=== PATIENT | male | born 1950 | race Caucasian/White ===

== ENCOUNTER → 2018-03-25 12:23 | Outpatient (CLI) | payer OTHER, SELFPAY ==
--- NOTE | 2018-03-25 12:25 | DI.RAD.S_ITS ---
PROCEDURE: XR FOOT RT MIN 3V INDICATIONS: Pain TECHNIQUE: 3 views of the foot were acquired. COMPARISON: None. FINDINGS: Bones: No fractures or dislocations. No suspicious bony lesions. Degenerative joint disease at the first MTPJ. Moderate bunion formation with mild valgus primum. The medial first sesamoid is bipartite. Plantar spur os calcis. Small traction spur at the Achilles insertion. Soft tissues: No tibiotalar joint effusion. Achilles tendon appears normal. IMPRESSION: 1. Negative for fracture or dislocation. 2. Degenerative changes. Dictated by: Adriel Russo M.D. on 03/25/2018 at 13:26 Approved by: Adriel Russo M.D. on 03/25/2018 at 13:28
== END ==
PROVIDERS: Family Provider Family Medicine; PCP Family Medicine; Visit Provider Physician Assistant
DX: M19.071 Primary osteoarthritis, right ankle and foot (principal)
CPT/HCPCS: 73630

== ENCOUNTER → 2018-08-31 09:16 | Outpatient (CLI) | payer OTHER, SELFPAY ==
[2018-08-31 10:26] LABS: Alanine Aminotransferase 26 IU/L (21-72); Albumin 3.9 g/dL (3.5-5.0); Albumin Globulin Ratio 1.3 (1.0-2.8); Alkaline Phosphatase 88 U/L (38-126); Aspartate Aminotransferase 30 IU/L (17-59); BUN Creatinine Ratio 26.7 (6-22); Bilirubin Total 1.7 mg/dL (0.2-1.3); Blood Urea Nitrogen 24 mg/dL (9-20); Calcium 8.4 mg/dL (8.4-10.2); Carbon Dioxide 22 mmol/L (22-32); Chloride 108 mmol/L (98-107); Cholesterol 163 mg/dL (140-199); Estimated Glomerular Filt Rate > 60.0 mL/min (>60); Glucose 132 mg/dL (80-110); HDL Cholesterol 34 mg/dL (40-60); HEMOLYSIS < 15 (0-50); LDL Cholesterol Calculated 96 mg/dL (<100); Potassium 4.2 mmol/L (3.4-5.1); Sodium 143 mmol/L (137-145); Total Protein 6.9 g/dL (6.3-8.2); Triglycerides 163 mg/dL (35-150)
[2018-08-31 10:45] LABS: Prostate Specific Antigen Scrn 0.185 ng/mL (0.1-4.0)
[2018-08-31 10:48] LABS: TSH w/ Reflex to FT4 2.87 uIU/mL (0.47-4.68)
== END ==
PROVIDERS: PCP Internal Medicine; Visit Provider Internal Medicine
DX: E03.9 Hypothyroidism, unspecified (principal); E29.1 Testicular hypofunction; I48.0 Paroxysmal atrial fibrillation; E66.9 Obesity, unspecified
CPT/HCPCS: 36415; 80053; 80061; 84443; G0103

== ENCOUNTER 2020-07-04 13:30 | Emergency (ER) | payer OTHER, SELFPAY ==
[2020-07-04] VITALS (8 sets, daily range): BP systolic 125–157; BP diastolic 64–101; PULSE 82–131; RESP 8–21; TEMP 36.7; O2SAT 96–99; BMI 38.3
--- NOTE | 2020-07-04 13:43 | DI.RAD.S_ITS ---
PROCEDURE: XR CHEST 1V INDICATIONS: chest pain TECHNIQUE: One view of the chest was acquired. COMPARISON: [facility], CR, CHEST 1 VIEW, 01/31/2016, 12:54. [facility], CR, XR CHEST 2 VIEWS, 02/07/2020, 10:33. FINDINGS: Surgical changes and devices: None. Lungs and pleura: Lung volumes are small consistent with thyroid inspiration. Lungs are clear. No pleural effusions or pneumothorax. Mediastinum: Mediastinal contours appear normal. Heart size is normal. Bones and chest wall: No suspicious bony lesions. Overlying soft tissues appear unremarkable. IMPRESSION: Shallow inspiration. No acute cardiopulmonary disease. Dictated by: Stephanie Choi M.D. on 07/04/2020 at 14:26 Approved by: Stephanie Choi M.D. on 07/04/2020 at 14:27
[2020-07-04 14:07] LABS: Add Manual Diff / Slide Review NO; Basophils Absolute Auto 100 /uL (0-100); Basophils Percent Auto 1.6 % (0-2); Eosinophils Absolute Auto 100 /uL (0-450); Eosinophils Percent Auto 2.7 % (2-4); Hematocrit 46.3 % (41-53); Hemoglobin 15.8 g/dL (13.5-17.5); Lymphocytes Absolute Auto 1200 /uL (1100-4500); Lymphocytes Percent Auto 34.5 % (25-40); Mean Corpuscular HGB Conc 34.1 % (30-36); Mean Corpuscular Hemoglobin 32.1 PG (26-34); Mean Corpuscular Volume 93.9 fL (80-100); Monocytes Absolute Auto 400 /uL (0-900); Monocytes Percent Auto 11.6 % (3-14); Neutrophils Absolute Auto 1800 /uL (1500-7000); Neutrophils Percent Auto 49.6 % (50-75); Platelet Count 185 X10^3/uL (150-400); Red Blood Cell Count 4.93 X10^6/uL (4.5-5.9); Red Cell Distribution Width 13.1 % (11.6-14.8); White Blood Cell Count 3.5 X10^3/uL (4.5-11.0)
[2020-07-04] MEDS: SODIUM CHLORIDE 0.9% 1,000 ML 1000 ML IV (14:11)
[2020-07-04 14:21] LABS: Alanine Aminotransferase 14 IU/L (<50); Albumin 3.9 g/dL (3.5-5.0); Albumin Globulin Ratio 1.3 (1.0-2.8); Alkaline Phosphatase 84 U/L (38-126); Aspartate Aminotransferase 27 IU/L (17-59); BUN Creatinine Ratio 23.7 (6-22); Bilirubin Total 1.4 mg/dL (0.2-1.3); Blood Urea Nitrogen 23 mg/dL (9-20); Calcium 8.7 mg/dL (8.4-10.2); Carbon Dioxide 25 mmol/L (22-32); Chloride 107 mmol/L (98-107); Estimated Glomerular Filt Rate > 60.0 mL/min (>60); Globulin 2.9 g/dL (1.7-4.1); Glucose 127 mg/dL (80-110); HEMOLYSIS < 15 (0-50); Magnesium 2.1 mg/dL (1.6-2.3); Potassium 4.3 mmol/L (3.4-5.1); Sodium 138 mmol/L (137-145); Total Protein 6.8 g/dL (6.3-8.2)
--- NOTE | 2020-07-04 14:21 | ED.CHESTPAIN ---
HPI - Chest Pain General Chief Complaint: Chest Pain Stated Complaint: Chest pain, a.fib Time Seen by Provider: 07/04/20 13:40 Source: patient Mode of arrival: Wheelchair History of Present Illness HPI narrative: 69-year-old gentleman with a history of paroxysmal atrial fibrillation (typically lasting no more than 12-48 hours) and not currently anticoagulated, presents with 4 days of atrial fibrillation with exertional chest pressure, pain and pain in through his back. He has no pain at rest. He describes no orthopnea, dyspnea or lower extremity edema. No fever, cough, chills, abdominal pain or change to bowel or bladder habit. Related Data Previous Rx's Medication Instructions Recorded losartan 50 mg tablet See Rx Instructions .ROUTE 10/07/19 .COMPLEX #90 tab metoprolol succinate 50 mg See Rx Instructions .ROUTE 10/07/19 tablet,extended release 24 hr .COMPLEX #270 tab tamsulosin 0.4 mg capsule See Rx Instructions .ROUTE 10/07/19 .COMPLEX #90 cap apixaban See Rx Instructions .ROUTE 07/04/20 .COMPLEX #74 each Allergies Allergy/AdvReac Type Severity Reaction Status Date / Time No Known Allergies Allergy Uncoded 07/04/20 13:39 Review of Systems Review of Systems Narrative: Remainder of review of systems including constitutional, ENT, cardiovascular, respiratory, GI, , musculoskeletal, skin, neurologic and psychiatric systems reviewed and are unremarkable except as noted in HPI. 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) Essential hypertension (Chronic) Deeth disease (Chronic) Hearing loss (Chronic) Hypogonadism in male (Chronic 12/29/12) Obesity (Chronic 12/29/12) Osteoarthritis (Chronic) Paroxysmal atrial fibrillation (Chronic) Vision disorder (Chronic) Surgical History Anesthesia (Resolved) History of knee surgery (Resolved) Social History marital status: number of children: 2 household members: spouse lives independently: Yes caregiver/support person: No housing: house Smoking Status: Former smoker Smoking Status: Former smoker Substance Use Type: does not use Exam Narrative Exam Narrative: General: Healthy appearing, in no acute distress. Able to give a complete and coherent history. Well-nourished well-developed HEENT: Moist mucous membranes, normal sclera with reactive pupils, Neck: No JVD, supple Respiratory: Lungs are clear to auscultation, no wheezing no rales no rhonchi. Full and symmetrical air movement Cardiac: Iregular rate and rhythm, no murmurs no bruits Abdomen: Soft nontender good bowel tones, no flank pain Skin: Warm and dry, no rashes Neurologic: Grossly neurologically intact with no obvious asymmetries or abnormalities Extremities: No trauma, well perfused, no lower extremity edema Psych: Cooperative, appropriate insight and affect Initial Vital Signs Initial Vital Signs: Vital Signs Temperature 98.1 F 07/04/20 13:35 Pulse Rate 131 H 07/04/20 13:35 Respiratory Rate 18 07/04/20 13:35 Blood Pressure 150/101 H 07/04/20 13:35 Pulse Oximetry 98 07/04/20 13:35 Scores ABCD2 Citation: Lancet. 2006Nov 22;369(1934):283-92. Validation and refinement of scores to predict very early stroke risk after transient ischaemic attack. Damien SC1, Deisy PM, William MN, Aly MF, Vini JS, Christelle AL, Zoltan S. Course Orders Ordered: ED Orders 07/04/20 13:43 XR chest 1V Stat Urinalysis and Microscopic Stat 07/04/20 13:51 EKG-12 Lead Routine 07/04/20 14:00 Complete Blood Count AUTO DIFF Stat Comprehensive Metabolic Panel Stat D Dimer Stat Magnesium Stat NT-proBNP (BNP-Adult 18+) Stat Procalcitonin Stat Troponin I Stat Discontinued Medications Apixaban (Eliquis) 5 mg PO NOW ONE Stop: 07/04/20 15:45 Sodium Chloride (Normal Saline 0.9%) 1,000 mls @ 1,000 mls/hr IV BOLUS ONE Stop: 07/04/20 14:41 Last Admin: 07/04/20 14:11 Dose: 1,000 mls/hr Documented by: TSERING Metoprolol Succinate (Toprol Xl) 50 mg PO NOW ONE Stop: 07/04/20 15:45 Vital Signs Vital signs: Vital Signs - 8 hr 07/04/20 13:35 07/04/20 14:12 07/04/20 14:30 Temperature 98.1 F Pulse Rate 131 H 99 H 94 H Respiratory Rate 18 14 13 Blood Pressure 150/101 H 127/81 Pulse Oximetry 98 99 98 MDM - Chest Pain Medical Records Data Attestation: I reviewed the patient's medical records. Lab Data Attestation: I reviewed the patient's lab results. Result diagrams: 07/04/20 14:00 07/04/20 14:00 Labs: Lab Results 07/04/20 07/04/20 07/04/20 Range/Units 14:00 14:00 14:00 WBC 3.5 L (4.5-11.0) X10^3/uL RBC 4.93 (4.5-5.9) X10^6/uL Hgb 15.8 (13.5-17.5) g/dL Hct 46.3 (41-53) % MCV 93.9 (80-100) fL MCH 32.1 (26-34) PG MCHC 34.1 (30-36) % RDW 13.1 (11.6-14.8) % Plt Count 185 (150-400) X10^3/uL Neut % (Auto) 49.6 L (50-75) % Lymph % (Auto) 34.5 (25-40) % Josephine % (Auto) 11.6 (3-14) % Eos % (Auto) 2.7 (2-4) % Baso % (Auto) 1.6 (0-2) % Neut # (Auto) 1800 (5919-2270) /uL Lymph # (Auto) 1200 (2065-0132) /uL Josephine # (Auto) 400 (0-900) /uL Eos # (Auto) 100 (0-450) /uL Baso # (Auto) 100 (0-100) /uL D-Dimer < 200 (<230) ng/mL Sodium 138 (137-145) mmol/L Potassium 4.3 (3.4-5.1) mmol/L Chloride 107 (98-107) mmol/L Carbon Dioxide 25 (22-32) mmol/L BUN 23 H (9-20) mg/dL Creatinine 0.97 (0.66-1.25) mg/dL Estimated GFR > 60.0 (>60) mL/min BUN/Creatinine Ratio 23.7 H (6-22) Glucose 127 H (80-110) mg/dL Calcium 8.7 (8.4-10.2) mg/dL Magnesium 2.1 (1.6-2.3) mg/dL Total Bilirubin 1.4 H (0.2-1.3) mg/dL AST 27 (17-59) IU/L ALT 14 (<50) IU/L Alkaline Phosphatase 84 (38-126) U/L Troponin I < 0.012 (0.01-0.034) ng/mL NT-Pro-B Natriuret Pep 1410 H (<125) pg/mL Total Protein 6.8 (6.3-8.2) g/dL Albumin 3.9 (3.5-5.0) g/dL Globulin 2.9 (1.7-4.1) g/dL Albumin/Globulin Ratio 1.3 (1.0-2.8) Procalcitonin (<0.5) ng/mL 07/04/20 Range/Units 14:00 WBC (4.5-11.0) X10^3/uL RBC (4.5-5.9) X10^6/uL Hgb (13.5-17.5) g/dL Hct (41-53) % MCV (80-100) fL MCH (26-34) PG MCHC (30-36) % RDW (11.6-14.8) % Plt Count (150-400) X10^3/uL Neut % (Auto) (50-75) % Lymph % (Auto) (25-40) % Josephine % (Auto) (3-14) % Eos % (Auto) (2-4) % Baso % (Auto) (0-2) % Neut # (Auto) (7008-7937) /uL Lymph # (Auto) (7317-1937) /uL Josephine # (Auto) (0-900) /uL Eos # (Auto) (0-450) /uL Baso # (Auto) (0-100) /uL D-Dimer (<230) ng/mL Sodium (137-145) mmol/L Potassium (3.4-5.1) mmol/L Chloride (98-107) mmol/L Carbon Dioxide (22-32) mmol/L BUN (9-20) mg/dL Creatinine (0.66-1.25) mg/dL Estimated GFR (>60) mL/min BUN/Creatinine Ratio (6-22) Glucose (80-110) mg/dL Calcium (8.4-10.2) mg/dL Magnesium (1.6-2.3) mg/dL Total Bilirubin (0.2-1.3) mg/dL AST (17-59) IU/L ALT (<50) IU/L Alkaline Phosphatase (38-126) U/L Troponin I (0.01-0.034) ng/mL NT-Pro-B Natriuret Pep (<125) pg/mL Total Protein (6.3-8.2) g/dL Albumin (3.5-5.0) g/dL Globulin (1.7-4.1) g/dL Albumin/Globulin Ratio (1.0-2.8) Procalcitonin < 0.05 (<0.5) ng/mL ECG Data Attestation: I personally reviewed and interpreted this ECG as follows: Interpretation: a fib at 96 normal axis No acute ischemic changes MDM Narrative Medical decision making narrative: 69-year-old gentleman with a history of paroxysmal atrial fibrillation currently with 4 days of atrial fibrillation. Exertional chest pain but doing well at rest. Reassuring labs and no evidence of acute coronary syndrome. Care is reviewed with Dr. Husain, cardiology with [facility]. His recommendation was to begin anticoagulation, increase his metoprolol succinate from 150-200 mg and have him follow-up in their rapid access cardiology clinic. This clinic will call him later this afternoon to schedule an appointment before the end of the week. Discharge Plan Departure Patient Disposition: Home Clinical Impression: Paroxysmal A-fib Instructions: DI for Atrial Fibrillation Activity Restrictions/Additional Instructions: Thank you for coming in today You have been in atrial fibrillation now for 4 days. There is no evidence of significant heart failure or heart attack like event. You do need a bit more help in controlling the heart rate. I am going to have you increase your metoprolol succinate 50 mg to 2 pills in the morning and 2 pills in the evening (this is an extra pill a day) I also going to have you start anticoagulation with apixaban. I have given you a prescription for a starter pack. Taking this will reduce her risk of stroke while you are in atrial fibrillation. I have spoken with Dr. Husain, Dr. Turner partner. Their office will give you a call to schedule an appointment into their rapid access cardiology clinic within the next couple of days. If you have increasing shortness of breath, pain, diaphoresis or other issues arise please feel free to return to the emergency department. Prescriptions: New apixaban 5 mg (74 tabs) tablets,dose pack See Rx Instructions .ROUTE .COMPLEX Qty: 74 RF: 0 No Action losartan 50 mg tablet See Rx Instructions .ROUTE .COMPLEX Qty: 90 RF: 3 metoprolol succinate 50 mg tablet extended release 24 hr See Rx Instructions .ROUTE .COMPLEX Qty: 270 RF: 3 tamsulosin 0.4 mg capsule See Rx Instructions .ROUTE .COMPLEX Qty: 90 RF: 3 Referrals: Jaison Lombardi MD [Non-Staff] - Travis Barnett MD [Primary Care Provider] -
[2020-07-04 14:33] LABS: NT-proBNP (BNP-Adult 18+) 1410 pg/mL (<125); Troponin I < 0.012 ng/mL (0.01-0.034)
[2020-07-04 14:36] LABS: D Dimer < 200 ng/mL (<230)
[2020-07-04 14:39] LABS: Procalcitonin < 0.05 ng/mL (<0.5)
[2020-07-04] MEDS: METOPROLOL ER 50 MG TABLET PO (15:49)
[2020-07-04] MEDS: APIXABAN 5 MG TABLET PO (15:49)
--- NOTE | 2020-07-05 18:06 | PC.NURSE ---
Patient called in requesting medication change from Eliquis back to warfarin due to cost. Discussed call with Dr Paredes. Called patient back and recommended patient to contact cardiology tomorrow to discuss follow up and medication changes
== END 2020-07-04 16:40 | disposition home or self-care (01) ==
PROVIDERS: Emergency Provider Emergency Medicine; Family Provider Family Medicine; PCP Internal Medicine
DX: I48.0 Paroxysmal atrial fibrillation (principal)
CPT/HCPCS: 36415; 71045; 80053; 83735; 83880; 84145; 84484; 85025; 85379; 93005; 96360; 96361; 99284

== ENCOUNTER → 2020-10-13 12:47 | Outpatient (CLI) | payer OTHER, SELFPAY ==
[2020-10-13 14:04] LABS: Hematocrit 43.3 % (41-53); Hemoglobin 14.4 g/dL (13.5-17.5); Mean Corpuscular HGB Conc 33.3 % (30-36); Mean Corpuscular Hemoglobin 31.2 PG (26-34); Mean Corpuscular Volume 93.9 fL (80-100); Platelet Count 188 X10^3/uL (150-400); Red Blood Cell Count 4.61 X10^6/uL (4.5-5.9); Red Cell Distribution Width 13.6 % (11.6-14.8); White Blood Cell Count 4.3 X10^3/uL (4.5-11.0)
[2020-10-13 14:21] LABS: Neutrophils Absolute Manual 2838 /uL (3000-5900); RBC Morphology Normal Morphology; Total Cells Counted 100
[2020-10-13 15:02] LABS: Alanine Aminotransferase 11 IU/L (<50); Albumin 3.8 g/dL (3.5-5.0); Albumin Globulin Ratio 1.3 (1.0-2.8); Alkaline Phosphatase 114 U/L (38-126); Aspartate Aminotransferase 25 IU/L (17-59); BUN Creatinine Ratio 23.4 (6-22); Bilirubin Total 1.8 mg/dL (0.2-1.3); Blood Urea Nitrogen 22 mg/dL (9-20); Calcium 8.8 mg/dL (8.4-10.2); Carbon Dioxide 26 mmol/L (22-32); Chloride 106 mmol/L (98-107); Cholesterol 102 mg/dL (140-199); Estimated Glomerular Filt Rate > 60.0 mL/min (>60); Globulin 2.9 g/dL (1.7-4.1); Glucose 131 mg/dL (80-110); HDL Cholesterol 31 mg/dL (40-60); HEMOLYSIS < 15 (0-50); LDL Cholesterol Calculated 42 mg/dL (<100); Potassium 4.2 mmol/L (3.4-5.1); Sodium 137 mmol/L (137-145); Total Protein 6.7 g/dL (6.3-8.2); Triglycerides 146 mg/dL (35-150)
[2020-10-13 15:32] LABS: Prostate Specific Antigen Scrn 0.156 ng/mL (0.1-4.0)
== END ==
PROVIDERS: PCP Internal Medicine; Referring Provider Internal Medicine; Visit Provider Internal Medicine
DX: I10 Essential (primary) hypertension (principal); I25.10 Atherosclerotic heart disease of native coronary artery without angina pectoris; I48.0 Paroxysmal atrial fibrillation; Z79.01 Long term (current) use of anticoagulants; Z79.899 Other long term (current) drug therapy; Z12.5 Encounter for screening for malignant neoplasm of prostate
CPT/HCPCS: 36415; 80053; 80061; 85025; G0103

== ENCOUNTER → 2020-11-13 13:57 | Outpatient (CLI) | payer OTHER, SELFPAY ==
[2020-11-13 15:45] LABS: COVID19 -Nasal RAPID Negative (Negative)
== END ==
PROVIDERS: PCP Internal Medicine; Visit Provider Physician Assistant
DX: Z20.822 Contact with and (suspected) exposure to COVID-19 (principal)
CPT/HCPCS: 87635

== ENCOUNTER 2020-11-14 12:34 | Outpatient (RCR) | payer OTHER, SELFPAY | END 2020-11-14 13:50 | LOC: CAR 12:34 | PROVIDERS: PCP Internal Medicine; Referring Provider Internal Medicine Cardiovascular Disease; Visit Provider Internal Medicine Cardiovascular Disease | DX: Z95.5 Presence of coronary angioplasty implant and graft (principal) | CPT/HCPCS: 93798 ==

== ENCOUNTER → 2020-11-15 14:33 | Outpatient (CLI) | payer OTHER, SELFPAY ==
--- NOTE | 2020-11-15 14:35 | DI.RAD.S_ITS ---
PROCEDURE: XR SHOULDER LT MIN 2V INDICATIONS: L shoulder pain, biceps tendon area TECHNIQUE: 3 views of the shoulder were acquired. COMPARISON: None. FINDINGS: Bones: No fractures or dislocations. No suspicious bony lesions. Visualized ribs appear intact. Soft tissues: No suspicious soft tissue calcifications. IMPRESSION: Mild AC joint osteoarthritis, normal appearing glenohumeral joint. No trauma. Dictated by: Miller Kruger M.D. on 11/15/2020 at 14:54 Approved by: Miller Kruger M.D. on 11/15/2020 at 14:55
--- NOTE | 2020-11-15 14:35 | DI.RAD.S_ITS ---
PROCEDURE: XR ANKLE LT MIN 3V INDICATIONS: L medial ankle pain post fall TECHNIQUE: 3 views of the ankle were acquired. COMPARISON: None. FINDINGS: Bones: No fractures or dislocations. Ankle mortise is normally aligned. No suspicious bony lesions. A corticated ossicle adjacent to the medial malleolus is likely sequelae of old injury. Moderate degenerative joint disease at the tailor navicular joint. Superior talar beak. There is a plantar calcaneal spur. Soft tissues: No tibiotalar joint effusion. Achilles tendon appears normal. IMPRESSION: 1. No acute osseous abnormalities. 2. A corticated ossicle adjacent to the medial malleolus, likely sequelae of old injury. 3. Degenerative changes as described. Dictated by: Stephanie Choi M.D. on 11/15/2020 at 15:51 Approved by: Stephanie Choi M.D. on 11/15/2020 at 15:54
== END ==
PROVIDERS: PCP Internal Medicine; Referring Provider Internal Medicine; Visit Provider Internal Medicine
DX: M25.572 Pain in left ankle and joints of left foot (principal); M19.072 Primary osteoarthritis, left ankle and foot; M25.512 Pain in left shoulder; M19.012 Primary osteoarthritis, left shoulder
CPT/HCPCS: 73030; 73610

== ENCOUNTER → 2021-07-11 19:24 | Outpatient (CLI) | payer OTHER, SELFPAY | PROVIDERS: PCP Internal Medicine; Referring Provider Orthopaedic Surgery; Visit Provider Orthopaedic Surgery | DX: S46.012A Strain of muscle(s) and tendon(s) of the rotator cuff of left shoulder, initial encounter (principal); Z53.20 Procedure and treatment not carried out because of patient's decision for unspecified reasons ==

== ENCOUNTER → 2022-01-17 12:40 | Outpatient (CLI) | payer OTHER, SELFPAY ==
[2022-01-18 12:02] LABS: Fecal Immunochemical Test Positive (Negative)
== END ==
PROVIDERS: PCP Internal Medicine; Referring Provider Internal Medicine; Visit Provider Internal Medicine
DX: Z12.11 Encounter for screening for malignant neoplasm of colon (principal)
CPT/HCPCS: 82274

== ENCOUNTER → 2023-04-08 10:24 | Outpatient (CLI) | payer MEDICARE, SELFPAY ==
[2023-04-08 11:07] LABS: Add Manual Diff / Slide Review NO; Basophils Absolute Auto 100 /uL (0-100); Basophils Percent Auto 1.7 % (0-2); Eosinophils Absolute Auto 100 /uL (0-450); Eosinophils Percent Auto 3.3 % (2-4); Hematocrit 44.2 % (41-53); Hemoglobin 15.2 g/dL (13.5-17.5); Lymphocytes Absolute Auto 800 /uL (1100-4500); Lymphocytes Percent Auto 23.3 % (25-40); Mean Corpuscular HGB Conc 34.3 % (30-36); Mean Corpuscular Volume 93.1 fL (80-100); Monocytes Absolute Auto 400 /uL (0-900); Monocytes Percent Auto 10.6 % (3-14); Neutrophils Absolute Auto 2200 /uL (1500-7000); Neutrophils Percent Auto 61.1 % (50-75); Platelet Count 173 X10^3/uL (150-400); Red Blood Cell Count 4.75 X10^6/uL (4.5-5.9); Red Cell Distribution Width 13.5 % (11.6-14.8); White Blood Cell Count 3.6 X10^3/uL (4.5-11.0)
[2023-04-08 11:22] LABS: Alanine Aminotransferase 18 IU/L (<50); Albumin 3.8 g/dL (3.5-5.0); Albumin Globulin Ratio 1.4 (1.0-2.8); Alkaline Phosphatase 101 U/L (38-126); Aspartate Aminotransferase 28 IU/L (17-59); BUN Creatinine Ratio 21.3 (6-22); Bilirubin Total 2.6 mg/dL (0.2-1.3); Blood Urea Nitrogen 16 mg/dL (9-20); Calcium 8.1 mg/dL (8.4-10.2); Carbon Dioxide 25 mmol/L (22-32); Chloride 106 mmol/L (98-107); Cholesterol 96 mg/dL (140-199); Estimated Glomerular Filt Rate > 60 mL/min (>60); Globulin 2.7 g/dL (1.7-4.1); Glucose 132 mg/dL (80-110); HDL Cholesterol 30 mg/dL (40-60); HEMOLYSIS < 15 (0-50); LDL Cholesterol Calculated 38 mg/dL (<100); Potassium 4.1 mmol/L (3.4-5.1); Sodium 137 mmol/L (137-145); Total Protein 6.5 g/dL (6.3-8.2); Triglycerides 140 mg/dL (35-150)
[2023-04-12 14:20] LABS: Percent Free Testosterone 1.93 % (1.50-4.20); Testosterone Free 6.11 ng/dL (5.00-21.00); Testosterone Total 316.5 ng/dL (264.0-916.0)
== END ==
PROVIDERS: PCP Internal Medicine; Referring Provider Internal Medicine; Visit Provider Internal Medicine
DX: E29.1 Testicular hypofunction (principal); I10 Essential (primary) hypertension; E78.2 Mixed hyperlipidemia; I48.0 Paroxysmal atrial fibrillation; Z79.01 Long term (current) use of anticoagulants
CPT/HCPCS: 36415; 80053; 80061; 84402; 84403; 85025

== ENCOUNTER → 2023-08-05 14:25 | Outpatient (CLI) | payer MEDICARE, SELFPAY ==
[2023-08-05 15:36] LABS: BUN Creatinine Ratio 21.3 (6-22); Blood Urea Nitrogen 20 mg/dL (9-20); Calcium 9.2 mg/dL (8.4-10.2); Carbon Dioxide 23 mmol/L (22-32); Chloride 106 mmol/L (98-107); Estimated Glomerular Filt Rate > 60 mL/min (>60); Glucose 111 mg/dL (80-110); HEMOLYSIS 21 (0-50); Potassium 4.6 mmol/L (3.4-5.1); Sodium 136 mmol/L (137-145)
== END ==
PROVIDERS: PCP Internal Medicine; Referring Provider Internal Medicine Cardiovascular Disease; Visit Provider Internal Medicine Cardiovascular Disease
DX: I48.0 Paroxysmal atrial fibrillation (principal); I10 Essential (primary) hypertension
CPT/HCPCS: 36415; 80048

== ENCOUNTER → 2024-04-06 09:15 | Outpatient (CLI) | payer MEDICARE, SELFPAY ==
[2024-04-06 10:41] LABS: Add Manual Diff / Slide Review NO; Basophils Absolute Auto 0 /uL (0-100); Basophils Percent Auto 1.2 % (0-2); Eosinophils Absolute Auto 100 /uL (0-450); Eosinophils Percent Auto 3.3 % (2-4); Hematocrit 45.2 % (41-53); Hemoglobin 15.3 g/dL (13.5-17.5); Lymphocytes Absolute Auto 1000 /uL (1100-4500); Lymphocytes Percent Auto 25.9 % (25-40); Mean Corpuscular HGB Conc 33.8 % (30-36); Mean Corpuscular Hemoglobin 31.8 PG (26-34); Mean Corpuscular Volume 93.9 fL (80-100); Monocytes Absolute Auto 500 /uL (0-900); Monocytes Percent Auto 12.8 % (3-14); Neutrophils Absolute Auto 2200 /uL (1500-7000); Neutrophils Percent Auto 56.8 % (50-75); Platelet Count 178 X10^3/uL (150-400); Red Blood Cell Count 4.81 X10^6/uL (4.5-5.9); Red Cell Distribution Width 13.6 % (11.6-14.8); White Blood Cell Count 3.9 X10^3/uL (4.5-11.0)
[2024-04-06 11:14] LABS: Alanine Aminotransferase 13 IU/L (<50); Albumin 3.9 g/dL (3.5-5.0); Albumin Globulin Ratio 1.9 (1.0-2.8); Alkaline Phosphatase 104 U/L (38-126); Aspartate Aminotransferase 28 IU/L (17-59); BUN Creatinine Ratio 23.1 (6-22); Blood Urea Nitrogen 18 mg/dL (9-20); Calcium 8.4 mg/dL (8.4-10.2); Carbon Dioxide 25 mmol/L (22-32); Chloride 108 mmol/L (98-107); Cholesterol 95 mg/dL (140-199); Estimated Glomerular Filt Rate > 60 mL/min (>60); Globulin 2.1 g/dL (1.7-4.1); Glucose 143 mg/dL (80-110); HDL Cholesterol 36 mg/dL (40-60); HEMOLYSIS < 15 (0-50); LDL Cholesterol Calculated 36 mg/dL (<100); Potassium 4.4 mmol/L (3.4-5.1); Sodium 138 mmol/L (137-145); Triglycerides 116 mg/dL (35-150)
== END ==
PROVIDERS: PCP Internal Medicine; Referring Provider Internal Medicine; Visit Provider Internal Medicine
DX: I10 Essential (primary) hypertension (principal); E78.2 Mixed hyperlipidemia; I48.0 Paroxysmal atrial fibrillation
CPT/HCPCS: 36415; 80053; 80061; 85025

== ENCOUNTER → 2024-05-28 09:44 | Outpatient (CLI) | payer MEDICARE, SELFPAY ==
[2024-05-28 11:04] LABS: Alanine Aminotransferase 17 IU/L (<50); Albumin 3.6 g/dL (3.5-5.0); Albumin Globulin Ratio 1.5 (1.0-2.8); Alkaline Phosphatase 128 U/L (38-126); Aspartate Aminotransferase 27 IU/L (17-59); BUN Creatinine Ratio 15.5 (6-22); Bilirubin Total 2.2 mg/dL (0.2-1.3); Bilirubin Unconjugated 2.1 mg/dL (0.0-1.1); Blood Urea Nitrogen 13 mg/dL (9-20); Calcium 8.2 mg/dL (8.4-10.2); Carbon Dioxide 24 mmol/L (22-32); Chloride 106 mmol/L (98-107); Estimated Glomerular Filt Rate > 60 mL/min (>60); Globulin 2.4 g/dL (1.7-4.1); Glucose 161 mg/dL (80-110); HEMOLYSIS < 15 (0-50); Potassium 4.3 mmol/L (3.4-5.1); Sodium 135 mmol/L (137-145)
== END ==
PROVIDERS: PCP Internal Medicine; Referring Provider Internal Medicine; Visit Provider Internal Medicine
DX: E78.2 Mixed hyperlipidemia (principal); E80.4 Gilbert syndrome; E80.6 Other disorders of bilirubin metabolism
CPT/HCPCS: 36415; 80048; 80076

== ENCOUNTER 2025-04-14 09:15 | Emergency (ER) | payer OTHER, SELFPAY ==
[2025-04-14] VITALS (36 sets, daily range): BP systolic 116–165; BP diastolic 70–100; PULSE 81–120; RESP 9–20; TEMP 36.8; O2SAT 96–99; BMI 36.2
--- NOTE | 2025-04-14 09:36 | DI.RAD.S_ITS ---
PROCEDURE: XR CHEST 1V INDICATIONS: Atrial fibrillation. History of ablation 2 years prior, 1st episode of prolonged irregularity since per notes. TECHNIQUE: One view of the chest was acquired. COMPARISON: [facility], CR, XR CHEST 1V, 07/04/2020, 13:51. FINDINGS: Mildly enlarged cardiopericardial silhouette. Mildly prominent conner, mild pulmonary vascular congestion and/or hilar lymph nodes. Low lung volumes with moderate bibasilar subsegmental atelectasis some of which related expiratory result. Mild bilateral diffuse but predominantly perihilar and lower lobe peribronchial thickening with patchy lower lobe opacities, some of which may be related expiratory result; however, bronchitis, viral infection, bronchopneumonia, asthma or other process should be considered. Moderate degenerative changes of the thoracic spine. No pneumothorax, no pleural effusion, no lobar consolidation. IMPRESSION: Enlarged cardiopericardial silhouette and prominent conner. Low lung volumes. Peribronchial thickening. Follow-up suggested. If symptoms persist or worsen, or there is high clinical suspicion of thoracic abnormality, CT chest could be performed. Dictated by: Michael Choi M.D. on 04/14/2025 at 10:35 Approved by: Michael Choi M.D. on 04/14/2025 at 10:38
--- NOTE | 2025-04-14 09:36 | EKG_ITS ---
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
--- NOTE | 2025-04-14 09:43 | ED.ARRPALP ---
HPI - Arrhythmia/Palpitations General Chief Complaint: Arrhythmia/Palpitations Stated Complaint: Heart palpitations x 1 day Time Seen by Provider: 04/14/25 09:40 History of Present Illness HPI narrative: 74-year-old gentleman history of CAD with [id number] ( cards [place]) with most recent angiogram in 2020, dyslipidemia, hypertension, diabetes, atrial fibrillation s/p ablation on apixaban and sotalol, and dyslipidemia presents with atrial fibrillation today. Patient denies chest pain shortness of breath dyspnea on exertion leg pain leg swelling fever chills at this time. Other than what is stated 14 point review of system is negative. Related Data Home Medications ?Medication ?Instructions ?Recorded ?Confirmed atorvastatin 40 mg tablet 40 mg PO DAILY 10/13/20 03/15/24 isosorbide mononitrate 30 mg 30 mg PO DAILY 10/13/20 03/15/24 tablet,extended release 24 hr sotalol 80 mg tablet 80 mg PO BID 01/10/22 03/15/24 warfarin 5 mg tablet 5 mg PO .see directions 03/17/23 03/15/24 clopidogrel 75 mg tablet 75 mg PO DAILY 03/15/24 03/15/24 Previous Rx's ?Medication ?Instructions ?Recorded Disabled Parking Permit #1 ea 08/09/24 tamsulosin 0.4 mg capsule 0.4 mg PO DAILY #90 caps 08/16/24 metoprolol tartrate 25 mg tablet 25 mg PO BID #60 tabs 04/14/25 Allergies Allergy/AdvReac Type Severity Reaction Status Date / Time No Known Allergies Allergy Verified 03/15/24 13:46 Review of Systems Review of Systems ROS Unobtainable: All systems reviewed & are unremarkable except as noted in HPI and below Patient History Medical History BPH w urinary obs/LUTS (12/29/12) Coronary artery disease (~07/2020) 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 Well-developed patient, in mild distress. HEAD: Atraumatic. Normocephalic. EYES: Pupils equal round and reactive. Extraocular motions intact. No scleral icterus. No injection or drainage. ENT: Nose without bleeding, purulent drainage. Throat without erythema, tonsillar hypertrophy or exudate. Airway patent. NECK: Trachea midline. Non tender CARDIOVASCULAR: Tachy irregular rate and rhythm without murmurs, gallops, or rubs. RESPIRATORY: Clear to auscultation. Breath sounds equal bilaterally. No wheezes, rales, or rhonchi. GASTROINTESTINAL: Abdomen soft, non-tender, nondistended. EXTREMITIES: No edema or joint tenderness. BACK: Nontender without deformity or crepitance. No flank tenderness. NEURO: AOx3. SKIN: No rash or erythema of visible areas Initial Vital Signs Initial Vital Signs: Vital Signs Temperature 98.2 F 04/14/25 09:32 Pulse Rate 120 H 04/14/25 09:32 Respiratory Rate 20 04/14/25 09:32 Blood Pressure 120/72 04/14/25 09:32 Pulse Oximetry 97 04/14/25 09:32 Oxygen Delivery Method Room Air 04/14/25 09:32 Course Orders Ordered: ED Orders 04/14/25 09:36 XR chest 1V Stat EKG-12 Lead Stat 04/14/25 09:45 Complete Blood Count AUTO DIFF Stat Comprehensive Metabolic Panel Stat Lipase Stat Magnesium Stat NT-proBNP (BNP-Adult 18+) Stat PTT Partial Thromboplastin Zeferino Stat Prothrombin Time INR Stat Troponin & CK Cardiac Panel Stat 04/14/25 12:08 EKG-12 Lead Stat Discontinued Medications Aspirin (Aspirin 81 Mg Chew Tab) 324 mg PO NOW ONE Stop: 04/14/25 09:37 Last Admin: 04/14/25 10:41 Dose: 324 mg Documented By: RAJIV Metoprolol Tartrate (Metoprolol Tartrate 5 Mg/5 Ml Inj) 5 mg IV Q5M [facility] Stop: 04/14/25 10:11 Last Admin: 04/14/25 10:54 Dose: 5 mg Documented By: Admin: 04/14/25 10:47 Dose: 5 mg Documented By: Admin: 04/14/25 10:42 Dose: 5 mg Documented By: RAJIV Vital Signs Vital signs: Vital Signs - 8 hr 04/14/25 10:30 04/14/25 10:30 04/14/25 10:35 Pulse Rate 103 H 102 H Respiratory Rate 14 Blood Pressure 116/80 Pulse Oximetry 96 96 Oxygen Delivery Method Room Air 04/14/25 10:40 04/14/25 10:45 04/14/25 10:46 Pulse Rate 93 H 104 H Respiratory Rate Blood Pressure 135/73 Pulse Oximetry 96 97 Oxygen Delivery Method 04/14/25 10:46 04/14/25 10:50 04/14/25 10:50 Pulse Rate 98 H 90 Respiratory Rate 15 Blood Pressure 153/70 H Pulse Oximetry 96 96 Oxygen Delivery Method 04/14/25 10:55 04/14/25 10:55 04/14/25 11:00 Pulse Rate 83 Respiratory Rate 13 Blood Pressure 132/70 135/74 Pulse Oximetry 97 Oxygen Delivery Method 04/14/25 11:00 04/14/25 11:05 04/14/25 11:05 Pulse Rate 88 86 Respiratory Rate 12 13 Blood Pressure 143/76 H Pulse Oximetry 97 96 Oxygen Delivery Method 04/14/25 11:10 04/14/25 11:15 04/14/25 11:20 Pulse Rate 92 H 97 H 81 Respiratory Rate 10 L 12 12 Blood Pressure Pulse Oximetry 97 96 96 Oxygen Delivery Method 04/14/25 11:25 04/14/25 11:30 04/14/25 11:30 Pulse Rate 87 84 Respiratory Rate 10 L 12 Blood Pressure 136/70 Pulse Oximetry 96 96 Oxygen Delivery Method 04/14/25 11:35 04/14/25 11:40 04/14/25 11:45 Pulse Rate 84 93 H 83 Respiratory Rate 10 L 10 L 13 Blood Pressure Pulse Oximetry 97 96 97 Oxygen Delivery Method 04/14/25 11:50 04/14/25 11:55 04/14/25 12:00 Pulse Rate 86 88 Respiratory Rate 12 15 Blood Pressure 143/86 H Pulse Oximetry 97 97 Oxygen Delivery Method 04/14/25 12:00 04/14/25 12:05 04/14/25 12:10 Pulse Rate 83 82 91 H Respiratory Rate 10 L 9 L 10 L Blood Pressure Pulse Oximetry 97 97 97 Oxygen Delivery Method 04/14/25 12:15 04/14/25 12:20 04/14/25 12:25 Pulse Rate 86 90 85 Respiratory Rate 19 14 10 L Blood Pressure Pulse Oximetry 96 97 97 Oxygen Delivery Method 04/14/25 12:30 04/14/25 12:30 04/14/25 12:35 Pulse Rate 88 Respiratory Rate 10 L Blood Pressure 165/100 H 143/80 H Pulse Oximetry 97 Oxygen Delivery Method 04/14/25 12:35 04/14/25 13:09 Pulse Rate 86 91 H Respiratory Rate 10 L 15 Blood Pressure 143/80 H Pulse Oximetry 97 96 Oxygen Delivery Method Room Air MDM - Arrhythmia/Palpitations Lab Data 04/14/25 09:45 04/14/25 09:45 Labs: Lab Results 04/14/25 Range/Units 09:45 WBC 4.2 L (4.5-11.0) X10^3/uL RBC 5.25 (4.5-5.9) X10^6/uL Hgb 16.8 (13.5-17.5) g/dL Hct 50.2 (41-53) % MCV 95.6 (80-100) fL MCH 32.0 (26-34) PG MCHC 33.5 (30-36) % RDW 13.3 (11.6-14.8) % Plt Count 173 (150-400) X10^3/uL Neut % (Auto) 62.9 (50-75) % Lymph % (Auto) 23.2 L (25-40) % [place] % (Auto) 9.3 (3-14) % Eos % (Auto) 2.7 (2-4) % Baso % (Auto) 1.9 (0-2) % Neut # (Auto) 2600 (8329-7599) /uL Lymph # (Auto) 1000 L (9890-7729) /uL [place] # (Auto) 400 (0-900) /uL Eos # (Auto) 100 (0-450) /uL Baso # (Auto) 100 (0-100) /uL PT 12.0 (9.4-12.5) SECONDS INR 1.1 (0.9-1.3) APTT 37 H (25.1-36.5) SECONDS Sodium 138 (137-145) mmol/L Potassium 4.1 (3.4-5.1) mmol/L Chloride 107 (98-107) mmol/L Carbon Dioxide 22 (22-32) mmol/L BUN 17 (9-20) mg/dL Creatinine 0.94 (0.66-1.25) mg/dL Estimated GFR > 60 (>60) mL/min BUN/Creatinine Ratio 18.1 (6-22) Glucose 179 H (70-99) mg/dL Calcium 8.8 (8.4-10.2) mg/dL Magnesium 1.8 (1.6-2.3) mg/dL Total Bilirubin 3.1 H (0.2-1.3) mg/dL AST 28 (17-59) IU/L ALT 17 (<50) IU/L Alkaline Phosphatase 111 (38-126) U/L Total Creatine Kinase 157 (55-170) U/L Troponin I < 0.012 (0.01-0.034) ng/mL NT-Pro-B Natriuret Pep 1510 H (<125) pg/mL Total Protein 6.8 (6.3-8.2) g/dL Albumin 4.2 (3.5-5.0) g/dL Globulin 2.6 (1.7-4.1) g/dL Albumin/Globulin Ratio 1.6 (1.0-2.8) Lipase 95 (23-300) U/L Imaging Data Chest x-ray: Radiologist's Impresson: [address] [address] XRay Report Signed Patient: Pa Agudelo MR#: [id number] : 1950 Acct:[id number] Age/Sex: 74 / M Date of Service: 04/14/25 Loc: ED Accession Number: [id number] Procedure: XR chest 1V Ordering Provider: Travis Montalvo D.O. PROCEDURE: XR CHEST 1V INDICATIONS: Atrial fibrillation. History of ablation 2 years prior, 1st episode of prolonged irregularity since per notes. TECHNIQUE: One view of the chest was acquired. COMPARISON: [facility], , XR CHEST 1V, 07/04/2020, 13:51. FINDINGS: Mildly enlarged cardiopericardial silhouette. Mildly prominent conner, mild pulmonary vascular congestion and/or hilar lymph nodes. Low lung volumes with moderate bibasilar subsegmental atelectasis some of which related expiratory result. Mild bilateral diffuse but predominantly perihilar and lower lobe peribronchial thickening with patchy lower lobe opacities, some of which may be related expiratory result; however, bronchitis, viral infection, bronchopneumonia, asthma or other process should be considered. Moderate degenerative changes of the thoracic spine. No pneumothorax, no pleural effusion, no lobar consolidation. IMPRESSION: Enlarged cardiopericardial silhouette and prominent conner. Low lung volumes. Peribronchial thickening. Follow-up suggested. If symptoms persist or worsen, or there is high clinical suspicion of thoracic abnormality, CT chest could be performed. ECG Data Interpretation: Afib RVR HR 121 RI undetermined QRS [address]-t wave change Change from 08/18/23 MDM Narrative Medical decision making narrative: All lab work, vital signs, nurse triage note, medication list, previous ER visits all reviewed. Patient came in AFib RVR given 3 doses of 5 mg each of metoprolol IV for which he is now rate controlled and now heart rate in the 80s to 105. Case discussed with Dr. Ennis brass cleaner on-call for Dr. Lombardi who recommended metoprolol tartrate 25 mg b.i.d. and she will send a message to Dr. Lombardi for follow up as outpatient in the near future. Differential diagnosis includes AFib RVR, STEMI NSTEMI CHF electrolyte derangement. CRITICAL CARE TIME 30 MINUTES Critical Care Time Critical Care Time Critical Care Time: Yes Total Critical Care Time: 30 Attestation: . Discharge Plan Departure Patient Disposition: Home Clinical Impression: Atrial fibrillation with rapid ventricular response Instructions: DI for Atrial Fibrillation Activity Restrictions/Additional Instructions: Return with new or worsening symptoms. Take your medicines directed. Follow up with Dr. Lombardi brass cleaner on-call. Prescriptions: New metoprolol tartrate 25 mg tablet 25 mg PO BID Qty: 60 0RF No Action (DME) Disabled Parking Permit See Rx Instructions .ROUTE .MEDSUPPLY Qty: 1 0RF Rx Instructions: I find this patient to be medically disabled and qualified for Disabled Parking as indicated on the accompanying [employer] Parking Application for Individuals. tamsulosin 0.4 mg capsule 0.4 mg PO DAILY Qty: 90 1RF isosorbide mononitrate 30 mg tablet extended release 24 hr 30 mg PO DAILY atorvastatin 40 mg tablet 40 mg PO DAILY warfarin 5 mg tablet 5 mg PO .see directions Patient Comments: [facility] Julieta Rx Instructions: 5 mgs 5x a week, 7.5 mg on other 2 days. clopidogrel 75 mg tablet 75 mg PO DAILY sotalol 80 mg tablet 80 mg PO BID Referrals: Travis Barnett MD [Primary Care Provider, Internal Medicine] Stand Alone Forms: Patient Portal/API
[2025-04-14 09:54] LABS: Add Manual Diff / Slide Review NO; Basophils Absolute Auto 100 /uL (0-100); Basophils Percent Auto 1.9 % (0-2); Eosinophils Absolute Auto 100 /uL (0-450); Eosinophils Percent Auto 2.7 % (2-4); Hematocrit 50.2 % (41-53); Hemoglobin 16.8 g/dL (13.5-17.5); Lymphocytes Absolute Auto 1000 /uL (1100-4500); Lymphocytes Percent Auto 23.2 % (25-40); Mean Corpuscular HGB Conc 33.5 % (30-36); Mean Corpuscular Volume 95.6 fL (80-100); Monocytes Absolute Auto 400 /uL (0-900); Monocytes Percent Auto 9.3 % (3-14); Neutrophils Absolute Auto 2600 /uL (1500-7000); Neutrophils Percent Auto 62.9 % (50-75); Platelet Count 173 X10^3/uL (150-400); Red Blood Cell Count 5.25 X10^6/uL (4.5-5.9); Red Cell Distribution Width 13.3 % (11.6-14.8); White Blood Cell Count 4.2 X10^3/uL (4.5-11.0)
[2025-04-14 10:00] LABS: INR 1.1 (0.9-1.3)
[2025-04-14 10:03] LABS: PTT Partial Thromboplastin Tim 37 SECONDS (25.1-36.5)
[2025-04-14 10:07] LABS: Alanine Aminotransferase 17 IU/L (<50); Albumin 4.2 g/dL (3.5-5.0); Albumin Globulin Ratio 1.6 (1.0-2.8); Alkaline Phosphatase 111 U/L (38-126); Aspartate Aminotransferase 28 IU/L (17-59); BUN Creatinine Ratio 18.1 (6-22); Bilirubin Total 3.1 mg/dL (0.2-1.3); Blood Urea Nitrogen 17 mg/dL (9-20); Calcium 8.8 mg/dL (8.4-10.2); Carbon Dioxide 22 mmol/L (22-32); Chloride 107 mmol/L (98-107); Creatine Kinase 157 U/L (55-170); Estimated Glomerular Filt Rate > 60 mL/min (>60); Globulin 2.6 g/dL (1.7-4.1); Glucose 179 mg/dL (70-99); HEMOLYSIS < 15 (0-50); Lipase 95 U/L (23-300); Magnesium 1.8 mg/dL (1.6-2.3); Potassium 4.1 mmol/L (3.4-5.1); Sodium 138 mmol/L (137-145); Total Protein 6.8 g/dL (6.3-8.2)
[2025-04-14 10:18] LABS: NT-proBNP (BNP-Adult 18+) 1510 pg/mL (<125); Troponin I < 0.012 ng/mL (0.01-0.034)
[2025-04-14] MEDS: ASPIRIN 81 MG CHEW TAB 324 MG PO (10:41)
[2025-04-14] MEDS: METOPROLOL TARTRATE 5 MG/5 ML INJ IV ×3 (10:42→10:54)
--- NOTE | 2025-04-14 11:04 | PC.NURSE ---
Afib started after he was chasing his miniture horse, racing down the road. pt was able to hold onto his eddie and had to let go twice. pt hit the ground rolling . no loc. pt's is sick as well. Afib event happened after.
--- NOTE | 2025-04-14 12:08 | EKG_ITS ---
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
== END 2025-04-14 13:12 | disposition home or self-care (01) ==
PROVIDERS: Emergency Provider Family Medicine; PCP Internal Medicine
DX: I48.20 Chronic atrial fibrillation, unspecified (principal); Z79.01 Long term (current) use of anticoagulants; Z86.79 Personal history of other diseases of the circulatory system; Z95.5 Presence of coronary angioplasty implant and graft
CPT/HCPCS: 71045; 80053; 82550; 83690; 83735; 83880; 84484; 85025; 85610; 85730; 93005; 93010; 96374; 99284; 99291

== ENCOUNTER 2025-04-17 18:11 | Emergency (ER) | payer OTHER, SELFPAY ==
[2025-04-17] VITALS (7 sets, daily range): BP systolic 144–208; BP diastolic 67–96; PULSE 53–62; RESP 13–30; O2SAT 97–99; BMI 36.2
--- NOTE | 2025-04-17 18:20 | DI.RAD.S_ITS ---
PROCEDURE: XR CHEST 1V INDICATIONS: Chest Pain TECHNIQUE: One view of the chest was acquired. COMPARISON: [facility], CR, XR CHEST 1V, 04/14/2025, 9:31. FINDINGS: Surgical changes and devices: None. Lungs and pleura: Lungs are clear. No pleural effusions or pneumothorax. Mediastinum: Mediastinal contours appear normal. Heart size is enlarged. Bones and chest wall: No suspicious bony lesions. Overlying soft tissues appear unremarkable. IMPRESSION: No acute pulmonary process. Dictated by: Nano Reeder M.D. on 04/17/2025 at 19:22 Approved by: Nano Reeder M.D. on 04/17/2025 at 19:22
--- NOTE | 2025-04-17 18:20 | EKG_ITS ---
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
--- NOTE | 2025-04-17 18:24 | ED_ITS ---
HPI - Arrhythmia/Palpitations General Chief Complaint: Hypertension Stated Complaint: Palpitations, Poss A Fib Time Seen by Provider: 04/17/25 18:24 History of Present Illness HPI narrative: 74-year-old male with history of atrial fibrillation diagnosed about 3 years ago, ablation procedure 2-1/2 years ago, treated in [facility], had atrial fibrillation with fast rate sensation presentation here 04/14/2025, recalls IV doses of metoprolol given, discharged on metoprolol tartrate 25 mg twice daily, this morning having elevated blood pressures. Denies palpitation arrhythmia like sensation. No syncope or presyncope. No chest pain or shortness of breath. Blood pressure home elevation measurements noted, he took his evening dose of metoprolol and came in for further evaluation here. Previously patient recalls being on an isosorbide which lowered his blood pressure too much, this is not an active medication. Patient has taken lisinopril in the past, not current active medication. Awaiting follow up allergy appointment within this next week in [place]. Related Data Home Medications ?Medication ?Instructions ?Recorded ?Confirmed atorvastatin 40 mg tablet 40 mg PO DAILY 10/13/2003/28 isosorbide mononitrate 30 mg 30 mg PO DAILY 10/13/20 0 04/17/25 tablet,extended release 24 hr sotalol 80 mg tablet 80 mg PO BID 01/10/22 clopidogrel 75 mg tablet 75 mg PO DAILY 03/15/2403/28 Previous Rx's ?Medication ?Instructions ?Recorded Disabled Parking Permit #1 ea 08/09/24 tamsulosin 0.4 mg capsule 0.4 mg PO DAILY #90 caps metoprolol tartrate 25 mg tablet 25 mg PO BID #60 tabs 04/14/25 Allergies Allergy/AdvReac Type Severity Reaction Status Date / Time No Known Allergies Allergy Verified 03/15/24 13:46 Patient History Medical History BPH w urinary obs/LUTS (12/29/12) Coronary artery disease (~07/2020) Current use of half-way anticoagulation Essential hypertension [place] disease Hearing loss Hypogonadism in male (12/29/12) Mixed hyperlipidemia Obesity (03/05/13) Osteoarthritis Paroxysmal atrial fibrillation Shoulder amputee Vision disorder Surgical History Anesthesia History of knee surgery Social History marital status: number of children: 2 household members: spouse lives independently: Yes caregiver/support person: No housing: house Exam Narrative Exam Narrative: GENERAL: Well-developed patient, in mild distress. HEAD: Atraumatic. Normocephalic. EYES: Pupils equal round and reactive. Extraocular motions intact. No scleral icterus. No injection or drainage. ENT: Nose without bleeding, purulent drainage. Throat without erythema, tonsillar hypertrophy or exudate. Airway patent. NECK: Trachea midline. Non tender CARDIOVASCULAR: Regular rate and rhythm without murmurs, gallops, or rubs. RESPIRATORY: Clear to auscultation. Breath sounds equal bilaterally. No wheezes, rales, or rhonchi. GASTROINTESTINAL: Abdomen soft, non-tender, nondistended. EXTREMITIES: No edema or joint tenderness. BACK: Nontender without deformity or crepitance. No flank tenderness. NEURO: AOx3. Motor functions grossly nonfocal SKIN: No rash or erythema of visible areas Initial Vital Signs Initial Vital Signs: Vital Signs Pulse Rate 62 04/17/25 18:21 Respiratory Rate 18 04/17/25 18:21 Blood Pressure 208/96 H 04/17/25 18:21 Pulse Oximetry 98 04/17/25 18:21 Oxygen Delivery Method Room Air 04/17/25 18:21 Course Orders Ordered: Discontinued Medications Aspirin (Aspirin 81 Mg Chew Tab) 324 mg PO NOW ONE Stop: 04/17/25 18:21 Last Admin: 04/17/25 19:04 Dose: Not Given Documented By: BS Prednisone (Prednisone 20 Mg Tablet) 60 mg PO NOW ONE Stop: 04/17/25 18:33 Last Admin: 04/17/25 19:12 Dose: Not Given Documented By: BS Vital Signs Vital signs: Vital Signs - 8 hr 04/17/25 18:21 04/17/25 18:21 04/17/25 18:30 Pulse Rate 62 62 59 L Respiratory Rate 18 30 H 18 Blood Pressure 208/96 H Pulse Oximetry 98 99 99 Oxygen Delivery Method Room Air Room Air 04/17/25 18:31 04/17/25 18:31 Pulse Rate 57 L Respiratory Rate 20 Blood Pressure 168/75 H Pulse Oximetry 99 Oxygen Delivery Method MDM - Arrhythmia/Palpitations Lab Data Attestation: I reviewed the patient's lab results. Lab results narrative: White blood cell count 5700, hemoglobin 15.3, platelets adequate. Glucose 109. Normal renal function. Sodium 134 slight decreased, potassium and serum CO2 normal. Total bilirubin 2.5 has been similarly or further elevated in the past. Transaminases and alkaline phosphatase not elevated. BNP 289 not elevated. Troponin negative/unmeasurable. 04/17/25 18:29 04/17/25 18:29 Labs: Lab Results 04/17/25 Range/Units 18:29 WBC 5.7 (4.5-11.0) X10^3/uL RBC 4.75 (4.5-5.9) X10^6/uL Hgb 15.3 (13.5-17.5) g/dL Hct 45.4 (41-53) % MCV 95.6 (80-100) fL MCH 32.1 (26-34) PG MCHC 33.6 (30-36) % RDW 13.6 (11.6-14.8) % Plt Count 178 (150-400) X10^3/uL Neut % (Auto) 60.6 (50-75) % Lymph % (Auto) 23.2 L (25-40) % [place] % (Auto) 12.5 (3-14) % Eos % (Auto) 2.5 (2-4) % Baso % (Auto) 1.2 (0-2) % Neut # (Auto) 3500 (6872-8042) /uL Lymph # (Auto) 1300 (1943-8557) /uL [place] # (Auto) 700 (0-900) /uL Eos # (Auto) 100 (0-450) /uL Baso # (Auto) 100 (0-100) /uL PT 13.9 H (9.4-12.5) SECONDS INR 1.2 (0.9-1.3) APTT 37 H (25.1-36.5) SECONDS Sodium 134 L (137-145) mmol/L Potassium 4.2 (3.4-5.1) mmol/L Chloride 105 (98-107) mmol/L Carbon Dioxide 25 (22-32) mmol/L BUN 17 (9-20) mg/dL Creatinine 0.86 (0.66-1.25) mg/dL Estimated GFR > 60 (>60) mL/min BUN/Creatinine Ratio 19.8 (6-22) Glucose 109 H (70-99) mg/dL Calcium 8.6 (8.4-10.2) mg/dL Magnesium 1.9 (1.6-2.3) mg/dL Total Bilirubin 2.5 H (0.2-1.3) mg/dL AST 28 (17-59) IU/L ALT 15 (<50) IU/L Alkaline Phosphatase 103 (38-126) U/L Total Creatine Kinase 103 (55-170) U/L Troponin I < 0.012 (0.01-0.034) ng/mL NT-Pro-B Natriuret Pep 289 H (<125) pg/mL Total Protein 6.5 (6.3-8.2) g/dL Albumin 4.0 (3.5-5.0) g/dL Globulin 2.5 (1.7-4.1) g/dL Albumin/Globulin Ratio 1.6 (1.0-2.8) Lipase 41 D (23-300) U/L Imaging Data Chest x-ray: Radiologist's Impresson: [address] [address] XRay Report Signed Patient: Pa Agudelo MR#: [id number] : 1950 Acct:[id number] Age/Sex: 74 / M Date of Service: 04/17/25 Loc: ED Accession Number: [id number] Procedure: XR chest 1V Ordering Provider: Harish Watson MD PROCEDURE: XR CHEST 1V INDICATIONS: Chest Pain TECHNIQUE: One view of the chest was acquired. COMPARISON: [facility], , XR CHEST 1V, 04/14/2025, 9:31. FINDINGS: Surgical changes and devices: None. Lungs and pleura: Lungs are clear. No pleural effusions or pneumothorax. Mediastinum: Mediastinal contours appear normal. Heart size is enlarged. Bones and chest wall: No suspicious bony lesions. Overlying soft tissues appear unremarkable. IMPRESSION: No acute pulmonary process. Dictated by: Nano Reeder M.D. on 04/17/2025 at 19:22 Approved by: Nano Reeder M.D. on 04/17/2025 at 19:22 ECG Data Attestation: I personally reviewed and interpreted this ECG as follows: Interpretation: Normal sinus rhythm with rate of 61, no obvious ST segment elevation or depression changes. No ectopy. SD 154, QRS 88, QTC 432. MDM Narrative Medical decision making narrative: 74-year-old male with history of atrial fibrillation, rapid response evaluation a few days ago here, had new metoprolol dosing on discharge, taking anticoagulation therapy, home blood pressure readings elevated tonight, took his evening dose of metoprolol. Blood pressure readings here not particular elevated/actionable. He denies any shortness of breath or palpitation or fast heart rate sensation. No syncope or presyncopal symptoms. Screening EKG unremarkable. Labs electrolytes unremarkable, troponin negative, elevated total bilirubin similar to prior evaluations. BNP not elevated. Chest x-ray no acute changes, see radiology report. Patient with resting heart rate sinus, 55-65 beats per minute. We will keep same dosing of metoprolol for now. In the past he has been on lisinopril which was discontinued after his prior cardiac ablation, he has had low blood pressure readings on isosorbide in the past. Follow up with his [facility] cardiology provider this next week encouraged as scheduled. Return precautions discussed. Discharged home. Discharge Plan Departure Patient Disposition: Home Clinical Impression: Hypertension Activity Restrictions/Additional Instructions: History of atrial fibrillation on chronic anticoagulation therapy, most recently had fast heart rate associated with AFib, started on metoprolol medication, elevated blood pressures noted at home monitoring tonight, no palpitation or chest pain or shortness of breath symptoms, evening dose of metoprolol taken. Improved blood pressure here in the emergency department. Screening labs unremarkable, appear at baseline. Chest x-ray no acute changes. EKG showed sinus rhythm without obvious ischemic changes. Resting heart rate 55-60 noted, we will not propose any increased metoprolol dose for now. In the past he or taken isosorbide which made your blood pressure go too low. In the past your taken lisinopril that was discontinued after your cardiac ablation procedure. You have follow up appointment with your cardiology providers upcoming within this next week, discuss further blood pressure management at that time. Continue taking your metoprolol at current dosing. Return earlier to this/nearest emergency department for any change worsening symptoms or any concerns prior. Prescriptions: No Action (DME) Disabled Parking Permit See Rx Instructions .ROUTE .MEDSUPPLY Qty: 1 0RF Rx Instructions: I find this patient to be medically disabled and qualified for Disabled Parking as indicated on the accompanying Disabled Parking Application for Individuals. tamsulosin 0.4 mg capsule 0.4 mg PO DAILY Qty: 90 1RF isosorbide mononitrate 30 mg tablet extended release 24 hr 30 mg PO DAILY atorvastatin 40 mg tablet 40 mg PO DAILY clopidogrel 75 mg tablet 75 mg PO DAILY sotalol 80 mg tablet 80 mg PO BID metoprolol tartrate 25 mg tablet 25 mg PO BID Qty: 60 0RF Referrals: Travis Barnett MD [Primary Care Provider, Internal Medicine] Stand Alone Forms: Patient Portal/API
[2025-04-17 18:39] LABS: Add Manual Diff / Slide Review NO; Basophils Absolute Auto 100 /uL (0-100); Basophils Percent Auto 1.2 % (0-2); Eosinophils Absolute Auto 100 /uL (0-450); Eosinophils Percent Auto 2.5 % (2-4); Hematocrit 45.4 % (41-53); Hemoglobin 15.3 g/dL (13.5-17.5); Lymphocytes Absolute Auto 1300 /uL (1100-4500); Lymphocytes Percent Auto 23.2 % (25-40); Mean Corpuscular HGB Conc 33.6 % (30-36); Mean Corpuscular Hemoglobin 32.1 PG (26-34); Mean Corpuscular Volume 95.6 fL (80-100); Monocytes Absolute Auto 700 /uL (0-900); Monocytes Percent Auto 12.5 % (3-14); Neutrophils Absolute Auto 3500 /uL (1500-7000); Neutrophils Percent Auto 60.6 % (50-75); Platelet Count 178 X10^3/uL (150-400); Red Blood Cell Count 4.75 X10^6/uL (4.5-5.9); Red Cell Distribution Width 13.6 % (11.6-14.8); White Blood Cell Count 5.7 X10^3/uL (4.5-11.0)
[2025-04-17 18:50] LABS: INR 1.2 (0.9-1.3); Prothrombin Time 13.9 SECONDS (9.4-12.5)
[2025-04-17 18:52] LABS: PTT Partial Thromboplastin Tim 37 SECONDS (25.1-36.5)
[2025-04-17 18:54] LABS: Alanine Aminotransferase 15 IU/L (<50); Albumin Globulin Ratio 1.6 (1.0-2.8); Alkaline Phosphatase 103 U/L (38-126); Aspartate Aminotransferase 28 IU/L (17-59); BUN Creatinine Ratio 19.8 (6-22); Bilirubin Total 2.5 mg/dL (0.2-1.3); Blood Urea Nitrogen 17 mg/dL (9-20); Calcium 8.6 mg/dL (8.4-10.2); Carbon Dioxide 25 mmol/L (22-32); Chloride 105 mmol/L (98-107); Creatine Kinase 103 U/L (55-170); Estimated Glomerular Filt Rate > 60 mL/min (>60); Globulin 2.5 g/dL (1.7-4.1); Glucose 109 mg/dL (70-99); HEMOLYSIS 15 (0-50); Lipase 41 U/L (23-300); Magnesium 1.9 mg/dL (1.6-2.3); Potassium 4.2 mmol/L (3.4-5.1); Sodium 134 mmol/L (137-145); Total Protein 6.5 g/dL (6.3-8.2)
[2025-04-17 19:05] LABS: NT-proBNP (BNP-Adult 18+) 289 pg/mL (<125); Troponin I < 0.012 ng/mL (0.01-0.034)
== END 2025-04-17 19:55 | disposition home or self-care (01) ==
PROVIDERS: Emergency Provider Emergency Medicine; PCP Internal Medicine
DX: I10 Essential (primary) hypertension (principal); R07.9 Chest pain, unspecified; Z79.01 Long term (current) use of anticoagulants
CPT/HCPCS: 36415; 71045; 80053; 82550; 83690; 83735; 83880; 84484; 85025; 85610; 85730; 93005; 93010; 99283; 99284

== ENCOUNTER → 2025-04-26 09:07 | Outpatient (CLI) | payer OTHER, SELFPAY ==
--- NOTE | 2025-04-26 09:09 | DI.ECHO.S_ITS ---
[facility] +---------+ [facility] : : [address] : : [place] : : [id number] : : Phone: [phone] Echocardiogram Report + + :Name: RENITA COLIN Study Date: 04/26/2025 Height: 71 in : :Hospital ReadingLocation: Weight: 260 lb : : Gender: Male BSA: 2.4 m2 : :: 1950 Age: 74 yrs BP: 136/80 mmHg: :Reason For Study: HEART CONDITION : :Ordering Physician: SHERRIE, : :JLUIS Performed By: May John : :Referring: JOHN DASILVA : + + Interpretation Summary The ejection fraction is estimated to be 55-60%. There is mild tricuspid regurgitation. The right ventricular systolic pressure is estimated to be at least 34 mmHg based on an estimated right atrial pressure of 3 mm Hg. Procedure: A two-dimensional transthoracic echocardiogram with color flow and Doppler was performed. The study quality was technically adequate. Comparison is made with the echocardiogram of 11/23/2013. The patient was in sinus bradycardia with heart rates between 53-60 bpm during the exam. Left Ventricle: The left ventricle is normal in size and wall thickness. The ejection fraction is estimated to be 55-60%. Left ventricular wall motion is normal. Diastolic parameters suggest probable normal left ventricular diastolic function and normal filling pressures. Right Ventricle: The right ventricle is normal in size and function. Atria: The left atrial size is normal. Right atrial size is normal. There is no Doppler evidence for an interatrial shunt. Mitral Valve: The mitral valve leaflets appear to open well. There is trace mitral regurgitation. Aortic Valve: The aortic valve is trileaflet. The aortic valve opens well. There is no aortic valve stenosis. There is trace aortic regurgitation. Tricuspid Valve: The tricuspid valve leaflets are thin and pliable. There is mild tricuspid regurgitation. The right ventricular systolic pressure is estimated to be at least 34 mmHg based on an estimated right atrial pressure of 3 mm Hg. Pulmonic Valve: The pulmonic valve leaflets are thin and pliable; valve motion is normal. There is mild pulmonic regurgitation. Great Vessels: The aortic root is normal size. The dimensions of the ascending aorta are normal. The IVC is of normal diameter and collapses greater than 50% with a sniff. This suggests a low right atrial pressure of 3 mm Hg. Pericardium/ Pleura There is no pericardial effusion. There is no pleural effusion. MMode/2D Measurements & Calculations LVIDd: 5.3 cm LVOT diam: 2.3 cm LVIDs: 3.8 cm Ao root diam: 3.8 cm FS: 29.0 % asc Aorta Diam: 3.4 cm EPSS: 0.60 cm Ao Arch Diam (Prox Trans): 3.1 cm IVSd: 0.89 cm LVPWd: 0.85 cm LV larios. diameter/BSA (cm/m^2): 2.3 LV sys. diameter/BSA (cm/m^2): 1.6 LA A2 area: 23.7 cm2 RA long axis: 5.2 cm LA A4 area: 23.1 cm2 RA area: 18.8 cm2 LA length (vol): 6.0 cm RA vol: 57.5 ml LA vol: 77.7 ml RA : 24.4 ml/m2 LA vol index: 33.0 ml/m2 IVC diam: 1.7 cm RVD1 (basal): 3.7 cm RVD2 (mid): 3.2 cm TAPSE: 2.1 cm Doppler Measurements & Calculations Ao V2 max: 150.5 cm/sec LVOT Max Josue: 95.6 cm/sec Ao V2 mean: 98.5 cm/sec LV V1 max P.7 mmHg Ao max P.1 mmHg LV V1 VTI: 22.6 cm Ao mean P.5 mmHg DMITRIY(I,D): 2.9 cm2 Ao V2 VTI: 33.7 cm DMITRIY(V,D): 2.8 cm2 sev ratio: 0.67 DMITRIY indexed to BSA (cm^2/m^2): 1.2 MV E max josue: 72.2 cm/sec TR max josue: 276.3 cm/sec MV A max josue: 51.4 cm/sec TR max P.5 mmHg MV E/A: 1.4 PA V2 max: 70.4 cm/sec Med Peak E' Josue: 6.8 cm/sec PA V2 mean: 47.2 cm/sec E/E' med: 10.6 PA mean P.0 mmHg Lat Peak E' Josue: 9.9 cm/sec PA pr(Accel): 35.3 mmHg E/E' lat: 7.3 E/e' average: 8.9 MV dec time: 0.19 sec SV(LVOT): 98.0 ml Reading Physician:04:23 PM
== END ==
PROVIDERS: PCP Internal Medicine; Referring Provider Internal Medicine; Visit Provider Physician Assistant
DX: I07.1 Rheumatic tricuspid insufficiency (principal); I25.10 Atherosclerotic heart disease of native coronary artery without angina pectoris; I48.91 Unspecified atrial fibrillation
CPT/HCPCS: 93306